=== PATIENT | female | born 1960 ===

== ENCOUNTER 2025-06-20 07:55 | Outpatient (CLI) | payer OTHER | END 2025-06-20 08:00 | disposition home or self-care (01) | LOC: SONOGRAMA 07:55 | PROVIDERS: ATTEND Pathology Anatomic Pathology & Clinical Pathology | DX: D34 Benign neoplasm of thyroid gland (principal); E04.2 Nontoxic multinodular goiter ==

== ENCOUNTER 2025-06-25 08:00 | Inpatient (IN) | payer OTHER ==
[~2025-06-25] VITALS: Ht 160 cm; Wt 86.2 kg
[2025-06-25 08:09] LABS: URINE APPEARANCE Turbid; URINE BILIRRUBIN Negative (NEGATIVE); URINE BLOOD Negative; URINE COLOR Yellow; URINE GLUCOSE Negative (NEGATIVE); URINE KETONE Negative (NEGATIVE); URINE LEUKOCYTE Negative; URINE NITRATE Negative; URINE PROTEIN Negative (NEGATIVE); URINE UROBILINOGEN 0.2 E.U./dl
[2025-06-25 08:13] LABS: URINE RBC 19.0 uL (0.0-20.8); URINE WBC 2.4 uL (0.0-23.2)
[2025-06-25 08:20] LABS: URINE BACTERIA 2.3 uL (0.0-1933); URINE CAST 0.00 uL (0.0-1.40); URINE EPITHELIAL CELLS 0.4 uL (0.0-38.8)
[2025-06-25 08:28] LABS: BASO % 1.2 % (0.1-1.2); EOS # 0.56 (0.04-0.54); EOS % 7.8 % (0.7-7.0); LYMPH # 2.14 (1.18-3.74); LYMPH % 29.6 % (19.3-53.1); MEAN PLATELET VOLUME 9.80 fl (9.4-12.4); MONO # 0.60 (0.24-0.82); MONO % 8.3 % (4.7-12.5); NEUT # 3.82 (1.56-6.13); NEUT % 53.0 % (34.0-71.1); RED CELL DISTRIBUTION WIDTH 14.2 % (11.6-14.4)
[2025-06-25 08:32] LABS: ALT/SGPT 24.0 U/L (12-78); AST/SGOT 17.0 U/L (15-37); BILIRUBIN TOTAL 1.15 mg/dL (0.3-1.2); BUN CREA RATIO 21.0 (7.0-25.0); CREATININE SERUM 0.68 mg/dL (0.55-1.02); GFR 87.67; GLOBULINA 3.6 G/DL (2.4-3.5); GLUCOSE FASTING 96.0 mg/dL (65-100); OSMOLALITY SERUM 285.0 MOSM/KG (275-295)
[2025-06-25] MEDS ORDERED: EZALLOR SPRINKL10 MG PO (08:33)
[2025-06-25] MEDS ORDERED: HORIZANT300 MG PO (08:33)
[2025-06-25] MEDS ORDERED: SYMBICORT 80/10.2 GM (08:34)
[2025-06-25 08:37] VITALS: BP 135/63
[2025-06-25 08:45] LABS: INR 0.99
[2025-07-04] MEDS ORDERED: DEXAMETHASONE SODIUM PHOSPHATE 4 MG/ML VIAL ONE (09:10)
[2025-07-04] MEDS ORDERED: ONDANSETRON HCL 2 MG/ML VIAL IV PRN (12:30)
[2025-07-04] MEDS ORDERED: ENALAPRILAT DIHYDRATE 1.25 MG/ML VIAL IV PRN (12:30)
[2025-07-04] MEDS ORDERED: MORPHINE SULFATE 4 MG/ML VIAL IV ONE (12:55)
[2025-07-04 14:00] VITALS: BP 133/75; O2SAT 98
[2025-07-04] MEDS ORDERED: CYCLOBENZAPRINE HCL 5 MG TABLET PO SCH (17:00)
[2025-07-04] MEDS ORDERED: ACETAMINOPHEN 500 MG GEL..CAP PO SCH (17:00)
[2025-07-04] MEDS ORDERED: TRAMADOL HCL 50 MG TABLET PO SCH (17:00)
[2025-07-04] MEDS ORDERED: LIDOCAINE HCL 30 ML,MAG HYDROX/ALUMINUM HYD/SIMETH 30 ML,DIPHENHYDRAMINE HCL 75 MG MM SCH (17:00)
[2025-07-04 17:20] VITALS: BP 122/80; O2SAT 98
[2025-07-04] MEDS ORDERED: PANTOPRAZOLE SODIUM 40 MG/VIAL VIAL IV PUSH SCH (21:00)
[2025-07-05 01:34] VITALS: BP 102/62; O2SAT 96
[2025-07-05 08:10] VITALS: BP 105/68; O2SAT 97
[2025-07-05 17:11] VITALS: BP 118/76; O2SAT 96
== END 2025-07-05 16:30 | DRG 627 ==
LOC: EDUNIT# 08:00 → O/R 07-04 07:00 → SURH 07-04 07:00
PROVIDERS: ADMIT Surgery; ATTEND Surgery
PROC: 0GBL0ZZ Excision of Right Superior Parathyroid Gland, Open Approach (ICD-10-PCS; principal; 2025-07-04 09:45)
DX: D35.1 Benign neoplasm of parathyroid gland (principal); E21.0 Primary hyperparathyroidism